=== PATIENT | female | born 1965 | race Caucasian/White ===

== ENCOUNTER 2022-12-19 10:32 | Emergency (ER) | payer OTHER, SELFPAY ==
[2022-12-19 10:36] VITALS: BP 137/74; PULSE 102; RESP 20; TEMP 37.1; O2SAT 96
--- NOTE | 2022-12-19 10:46 | ED.EXTPRO ---
HPI - Extremity Problem General Chief complaint: Extremity Problem,Nontraumatic Stated complaint: Right leg pain Time Seen by Provider: 12/19/22 10:49 History of Present Illness HPI Narrative: Patient presents with chronic leg pain due to fibromyalgia. Patient was just evaluated by her PCP and started on Tylenol No. 4 hours and instructed to take as needed for pain and has appointment with the [facility] next week for further evaluation treatment of chronic pain. Patient denies any injury to leg no change in pain from when she was evaluated by her PCP. No swelling no injury no open areas no deformity noted to lower extremity no calf pain. Related Data Home Medications Medication Instructions Recorded Confirmed acetaminophen 300 mg-codeine 60 mg tablet 12/19/22 tablet amitriptyline 100 mg tablet mg 12/19/22 cyclobenzaprine 10 mg tablet mg 12/19/22 lidocaine 5 % topical patch patch 12/19/22 ropinirole 0.25 mg tablet mg 12/19/22 Allergies Allergy/AdvReac Type Severity Reaction Status Date / Time Penicillins Allergy Unknown Verified 07/18/14 19:17 No Known Allergies Allergy Unverified 04/17/19 18:32 Review of Systems Review of Systems: CONSTITUTIONAL: Denies fever, chills, or sweats. EYES: Denies visual changes, redness, or discharge. ENT: Denies rhinorrhea, congestion, sore throat, or otalgia. CARDIOVASCULAR: Denies chest pain, palpitations, or edema. RESPIRATORY: Denies cough or dyspnea. GASTROINTESTINAL: Denies abdominal pain, nausea, vomiting, or diarrhea. GENITOURINARY: Denies dysuria or hematuria. SKIN: Denies rash or itching. MUSCULOSKELETAL: Denies back pain, joint pain, or myalgia. NEUROLOGIC: Denies headache, numbness, or weakness. PSYCHIATRIC: Denies anxiety or depression. PMFSH Social History Social History Smoking status: Smoker, status unknown Alcohol intake: never Comments At time of signature, agree with nursing past medical, surgical, social and family history. There is no relevant family history pertinent to the presenting complaint Exam Narrative: GENERAL: Well-appearing, well-nourished, and in no acute distress. HEAD: Normocephalic, atraumatic. EYES: PERRLA and EOMI. ENT: Nares clear, no rhinorrhea or epistaxis. Mucous membranes moist. NECK: Supple. CHEST: Clear to auscultation. No respiratory distress. HEART: Regular rate and rhythm. No murmur heard. Normal peripheral pulses. ABDOMEN: Soft, nontender, nondistended, normal active bowel sounds. EXTREMITIES: Normal range of motion. No edema.ANKLE EXAM SKIN INTACT. NORMAL DP PULSE, NORMAL CAP REFILL. NORMAL SENSATION. CAN TRY HONEY FOR COUGH IF OLDER THAN ONE YEAR. MUCINEX, NYQUIL, DAYQUIL, ROBITUSSIN AND OTHER OTC COLD/COUGH MEDICATIONS CAN ALL BE USED IN TEENAGERS AND ADULTS WITH CAUTION. DO NOT MIX OR USE MULTIPLE THERAPIES WITHOUT DISCUSSING WITH YOUR DOCTOR OR PHARMACY. STEAM FROM SHOWER TWICE DAILY OR COOL MIST HUMIDIFIER -If you have any worsening of symptoms or any other concerns please go to the ED immediately.right lower leg Lower extremity: RIGHT HIP EXAM - SKIN INTACT. NO BRUISING, REDNESS OR SWELLING. NO INGUINAL MASSES OR LYMPHADENOPATHY. GENERALIZED FEMUR AND HIP TENDERNESS. PATIENT HOLDING HIP IN EXTERNAL ROTATION WITH SLIGHT FLEXION OF KNEE. NO BUTTOCK OR SI JOINT TENDERNESS. ROM LIMITED DUE TO PAIN. NORMAL FEMORAL PULSES. BACK EXAM - NO VERTEBRAL POINT SPECIFIC TENDERNESS OR STEP OFFS. NORMAL ROM OF BACK. NORMAL FLEXION AND EXTENSION OF BACK. NO CVA TENDERNESS. LEG EXAM - NO CALF OR ANKLE SWELLING, DISCOLORATION. NORMAL FOOT SENSATION AND CAP REFILL. NORMAL DP PULSE. . SKIN: Warm, dry, no rash. NEURO: No focal deficits. Alert and oriented x3. [place] Coma Scale Eye Opening: Spontaneous 4 [place] Coma Scale Motor: Obeys Commands 6 Gen Coma Scale Verbal: Oriented 5 Gen Coma Scale Total 15 Course Course Level of Care: Express Care Visit Vital Signs Vital signs: Vital Signs Temperature 37.1 C 0
== END 2022-12-19 10:52 | disposition home or self-care (01) ==
PROVIDERS: Emergency Provider Nurse Practitioner Family; PCP Nurse Practitioner
DX: M79.7 Fibromyalgia (principal)
CPT/HCPCS: 99211; G0463

== ENCOUNTER 2024-10-09 10:13 | Emergency (ER) | payer OTHER, SELFPAY ==
[2024-10-09 10:23] VITALS: BP 132/79; PULSE 89; RESP 16; TEMP 36.4; O2SAT 96
--- NOTE | 2024-10-09 10:36 | ED_ITS ---
HPI - Skin/Abscess/Foreign Bdy General Chief complaint: Skin/Abscess/Foreign Body Stated complaint: Skin Problem Source: patient Mode of arrival: ambulatory Limitations: no limitations History of Present Illness HPI narrative: 59-year-old female presented for complaint of a painful red rash to the abdomen and the left side. Reports pain started 4 days ago. Developed red painful blisters yesterday. Taking Tylenol No. 4 from previous prescription. Denies lip, tongue, or throat swelling,shortness of breath or wheezing. Denies changes to soap, detergent, lotion, or any other exposures. No one else in the house or any contacts with similar symptoms. Related Data Home Medications ?Medication ?Instructions ?Recorded ?Confirmed ?Last Taken ?Type acetaminophen 300 mg-codeine 60 mg tablet 12/19/22 Unknown History tablet amitriptyline 100 mg tablet mg 12/19/22 Unknown History cyclobenzaprine 10 mg tablet 10 mg 12/19/22 Unknown History ropinirole 0.25 mg tablet mg 12/19/22 Unknown History meloxicam .ROUTE 10/09/24 Unknown History Allergies Allergy/AdvReac Type Severity Reaction Status Date / Time Penicillins Allergy Unknown Verified 07/18/14 19:17 No Known Allergies Allergy Unverified 04/17/19 18:32 Review of Systems Review of Systems: CONSTITUTIONAL: Denies body aches, fever, chills, or sweats. EYES: Denies visual changes, redness, or discharge. ENT: Denies rhinorrhea, congestion CARDIOVASCULAR: Denies chest pain, palpitations, or edema. RESPIRATORY: Denies cough or dyspnea. GASTROINTESTINAL: Denies abdominal pain, nausea, vomiting, or diarrhea. SKIN: reports rash to abdomen MUSCULOSKELETAL: Denies back pain, joint pain, or myalgia. NEUROLOGIC: Denies headache, numbness, tingling, or weakness. [facility] Social History Social History Smoking status: Smoker, status unknown Alcohol intake: never Comments At time of signature, I have reviewed and agree with nursing past medical, surgical, social and family history unless otherwise noted. Please see nursing chart for further information. There is no relevant family history pertinent to the presenting complaint Exam Narrative: GENERAL: Well-appearing EYES: conjunctivae clear, and EOMI. ENT: Mucous membranes moist. Oropharynx without edema, erythema or lesions. NECK: Supple. No lymphadenopathy CHEST: Clear to auscultation. HEART: Regular rate and rhythm. SKIN: Warm, dry. Extensive blistering on erythematous base extending from midline abdomen around to left flank to the midline of back c/w zoster lesions. NEURO: Alert and oriented x3. Course Course Emergency Course: Patient is aware of diagnosis, understands and agrees to treatment plan. Anticipatory guidance given. Patient agrees to follow-up as directed and is aware of reasons to seek care at the emergency department. Portions of this record may have been created with voice recognition software Level of Care: Express Care Visit Vital Signs Vital signs: Vital Signs Temperature 97.6 F 10/09/24 10:23 Pulse Rate 89 10/09/24 10:23 Respiratory Rate 16 10/09/24 10:23 Blood Pressure 132/79 10/09/24 10:23 Pulse Oximetry 96 10/09/24 10:23 Oxygen Delivery Room Air 10/09/24 10:23 Temperature 97.6 F 10/09/24 10:23 Pulse Rate 89 10/09/24 10:23 Respiratory Rate 16 10/09/24 10:23 Blood Pressure 132/79 10/09/24 10:23 Pulse Oximetry 96 10/09/24 10:23 Oxygen Delivery Room Air 10/09/24 10:23 Reviewed MDM - Skin/Abscess/Foreign Bdy MDM Narrative Medical decision making narrative: Discussed physical exam findings Consistent with zoster. Advised supportive measures and signs/symptoms to go to the ER. Pt is appropriate for outpt treatment and f/u. Differential Diagnosis Differential diagnosis: Likely abscess of skin or subcutaneous tissue, urticaria, herpes zoster, cellulitis and contact dermatitis Discharge Plan Discharge Clinical Impression: Herpes zoster Patient Disposition: Home, Self-Care Condition: Stable Instructions: Antibiotic Form, Shingles (ED) Additional Instructions: Take medication as directed Keep the lesions covered until they are fully crusted over - you are contagious until they are dried Avoid contact with women or people who have not had chickenpox vaccination. Tylenol 1000mg every 8 hours as needed Lidocaine 5% patch as directed Follow up with your primary care provider next week. Go to the ER for worsening symptoms or concerns. Patient Language: Kiswahili Prescriptions: New valacyclovir [Valtrex] 1 gram tablet 1,000 mg PO Q8H 7 Days Qty: 21 0RF lidocaine HCl 3 % cream 1 applic topical TID PRN (Reason: pain) Qty: 28.3 0RF No Action cyclobenzaprine 10 mg tablet 10 mg ropinirole 0.25 mg tablet acetaminophen-codeine 300-60 mg tablet amitriptyline 100 mg tablet meloxicam .ROUTE Follow-up/Referrals: Ney,Lucio Ybarra APRN [Primary Care Provider] - Time of Disposition: 10:41
== END 2024-10-09 10:43 | disposition home or self-care (01) ==
PROVIDERS: Emergency Provider Nurse Practitioner Family; PCP Nurse Practitioner
DX: B02.9 Zoster without complications (principal); M79.7 Fibromyalgia
CPT/HCPCS: 99213; G0463